=== PATIENT | male | born 1995 | race African-American/Black ===

== ENCOUNTER 2025-03-14 10:32 | Emergency (ER) | payer OTHER ==
[~2025-03-14] VITALS: Ht 188 cm; Wt 118.0 kg
[2025-03-14 10:37] VITALS: O2SAT 97
[2025-03-14 13:00] VITALS: BP 150/92; PULSE 103; RESP 21; TEMP 36.5; O2SAT 98
== END 2025-03-14 13:52 | disposition home or self-care (01) ==
LOC: ER 10:32
DX: T75.4XXA Electrocution, initial encounter (principal); X58.XXXA Exposure to other specified factors, initial encounter; Y93.89 Activity, other specified; Y92.89 Other specified places as the place of occurrence of the external cause; Y99.8 Other external cause status
CPT/HCPCS: 71045; 93005; 99284; Z7610; A4606